=== PATIENT | male | born 1990 | race Caucasian/White ===

== ENCOUNTER 2022-10-29 08:38 | Emergency (ER) | payer BC ==
[~2022-10-29] VITALS: Ht 162.6 cm; Wt 59.0 kg
[2022-10-29 08:44] VITALS: BP 131/73; PULSE 80; RESP 16; TEMP 98.1; O2SAT 99
== END 2022-10-29 11:06 | disposition home or self-care (01) ==
LOC: MED 08:38
DX: F12.90 Cannabis use, unspecified, uncomplicated (principal); M25.561 Pain in right knee; M25.562 Pain in left knee; Z79.899 Other long term (current) drug therapy
CPT/HCPCS: 99281